=== PATIENT | male | born 1995 | race African-American/Black ===

== ENCOUNTER 2021-12-05 02:55 | Emergency (ER) | payer OTHER ==
[~2021-12-05] VITALS: Ht 170.2 cm; Wt 88.0 kg
[2021-12-05 05:55] LABS: BASOPHILS % 0.4 % (0.0-2.0); EOSINOPHILS % 0.8 % (0.0-5.0); HEMATOCRIT. 51.1 % (42.0-52.0); HEMOGLOBIN. 16.8 g/dL (14.0-18.0); LYMPHOCYTES % 25.9 % (20.0-50.0); MEAN CORPUSCULAR HEMOGLOBIN 29.5 pg (28.0-32.0); MEAN CORPUSCULAR VOLUME 89.7 fL (80.0-94.0); MEAN PLATELET VOLUME 8.2 fl (7.4-10.4); MONOCYTES % 5.4 % (2.0-8.0); NEUTROPHILS % 67.5 % (40.0-76.0); PLATELET 246 x1000/uL (130-400); RED CELL DISTRIBUTION WIDTH 14.3 % (11.6-14.6)
[2021-12-05 06:11] LABS: CHLORIDE 102 mEq/L (98-107)
[2021-12-05] MEDS ORDERED: DOLU50TA MT (06:25)
[2021-12-05] MEDS ORDERED: EMTR1TAB11 MT (06:25)
[2021-12-05 06:30] VITALS: BP 140/78
[2021-12-05 15:04] LABS: HEPATITIS B SURFACE AB < 3.1 mIU/mL
[2021-12-05 15:14] LABS: HEPATITIS B SURFACE ANTIGEN NEGATIVE
[2021-12-05 15:15] LABS: HEPATITIS B SURFACE ANTIGEN NEGATIVE
[2021-12-06 06:08] LABS: HIV SCREEN 4G Non Reactive (Non Reactive)
== END 2021-12-05 06:30 | disposition home or self-care (01) ==
LOC: ER 02:55
DX: Z77.21 Contact with and (suspected) exposure to potentially hazardous body fluids (principal)
CPT/HCPCS: 36415; 80053; 85025; 86592; 86703; 86705; 86709; 86803; 87340; 87389; 99283

== ENCOUNTER 2022-01-03 22:08 | Emergency (ER) | payer OTHER ==
[~2022-01-03] VITALS: Ht 170.2 cm; Wt 89.0 kg
[~2022-01-03 22:08] MED LIST: DOLU50TA MT; EMTR1TAB11 MT
[2022-01-03] MEDS ORDERED: TETANUS, DIPHTHERIA, PERTUSSIS VAC/PF 0.5ML (>10YR OLD) IM ONE (23:15)
[2022-01-04] MEDS ORDERED: DOXY100T28 PO (00:10)
[2022-01-04 01:59] VITALS: BP 136/78
[2022-01-04 05:26] LABS: HEPATITIS B SURFACE AB 3.2 mIU/mL
[2022-01-04 05:37] LABS: HEPATITIS B SURFACE ANTIGEN NEGATIVE
[2022-01-04] MEDS ORDERED: IBUP-2028 PO (08:02)
[2022-01-05 05:08] LABS: HIV SCREEN 4G Non Reactive (Non Reactive)
[2022-01-05 06:11] LABS: HEPATITIS C AB <0.1 s/co ratio (0.0-0.9)
== END 2022-01-04 02:05 | disposition home or self-care (01) ==
LOC: ER 22:08
DX: S60.471A Other superficial bite of left index finger, initial encounter (principal); Z88.0 Allergy status to penicillin; Y04.1XXA Assault by human bite, initial encounter; Y93.89 Activity, other specified; Y92.238 Other place in hospital as the place of occurrence of the external cause; Y99.8 Other external cause status
CPT/HCPCS: 36415; 84460; 86705; 86706; 86803; 87389; 90471; 90715; 99283

== ENCOUNTER 2022-01-04 05:44 | Emergency (ER) | payer OTHER ==
[~2022-01-04] VITALS: Ht 170.2 cm; Wt 89.0 kg
[~2022-01-04 05:44] MED LIST changes: +DOXY100T28 PO
[2022-01-04 06:02] VITALS: BP 154/73
[2022-01-04] MEDS ORDERED: ACETAMINOPHEN 325MG TABLET PO ONE (06:45)
[2022-01-04] MEDS ORDERED: IBUPROFEN 400MG TABLET PO ONE (08:00)
[2022-01-04] MEDS ORDERED: IBUP-2028 PO (08:02)
== END 2022-01-04 08:20 | disposition home or self-care (01) ==
LOC: ER 05:44
DX: S60.221A Contusion of right hand, initial encounter (principal); M79.18 Myalgia, other site; Z88.0 Allergy status to penicillin; Z90.89 Acquired absence of other organs; Y08.89XA Assault by other specified means, initial encounter; Y93.89 Activity, other specified; Y92.238 Other place in hospital as the place of occurrence of the external cause; Y99.8 Other external cause status
CPT/HCPCS: 70486; 73090; 73110; 73130; 99284